=== PATIENT | male | born 1965 | race Caucasian/White ===

== ENCOUNTER 2020-08-21 20:10 | Observation (INO) | payer SELFPAY ==
[2020-08-21] VITALS (8 sets, daily range): BP systolic 131–171; BP diastolic 76–104; PULSE 52–67; RESP 16–19; TEMP 36.1–36.6; O2SAT 98–100; BMI 26.6; BMI 26.2; BMI 26.0
--- NOTE | 2020-08-21 20:13 | ED.RN ---
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
--- NOTE | 2020-08-21 20:28 | EKG12_ITS ---
Test Reason : CP Blood Pressure : / mmHG Vent. Rate : 058 BPM Atrial Rate : 058 BPM P-R Int : 154 ms QRS Dur : 122 ms QT Int : 400 ms P-R-T Axes : 046 -13 047 degrees QTc Int : 392 ms Sinus bradycardia Right bundle branch block Abnormal ECG Confirmed by JENNI GUERRERO, KATIE ([id number]), marketing editor SAW PAIZ ([id number]) on 08/28/2020 9:15:04 AM Referred By: LILIAN Confirmed By:SOCORRO ARTEAGA MD
--- NOTE | 2020-08-21 20:28 | RAD_ITS ---
STUDY: X-RAY CHEST REASON FOR EXAM: Male, 55 years old. chronic chest pain for several weeks, SOB TECHNIQUE: Single AP portable view of the chest. COMPARISON: None. FINDINGS: The lungs are clear and expanded. There is no demonstrated pleural abnormality. Normal size heart. Normal mediastinum and miguel. Normal visualized pulmonary arteries. Normal visualized aortic arch and descending thoracic aorta. Normal visualized thoracic spine. Normal visualized ribs, clavicles, and shoulders. There is no demonstrated abnormality of the visualized soft tissue structures of the upper abdomen. RAD/Chest 1 View (Portable) IMPRESSION: Normal x-ray examination of the chest. Electronically Signed: Ivette Hernandez MD at 21:51 EST Tel , Service support ,
--- NOTE | 2020-08-21 20:29 | ED.DCSUM_ITS ---
History of Present Illness Chief Complaint: Chest Pain Informant: Patient Onset: Month(s) Context: Sudden Onset Timing: Intermittent Quality: Pressure tightness Location: Central to left chest Current Severity: Mild Maximum Severity: Moderate Worsened by: Heavy exertion Relieved by: Rest Associated Symptoms: Shortness of breath Narrative: Patient is a 55-year-old male who states he is had chest discomfort that is intermittent and related to exertion for the past 1 to 2 months. He saw his primary care physician Dr. Esparza who did an EKG and felt it was nothing serious. He denies any infectious symptoms. He denies fever, chills night sw eats. Nu[place] weight gain or weight loss. Denies history of smoking or drinking. He denies history of hypertension, diabetes or hypercholesterolemia. He denies history of VTE. He denies leg pain, swelling discoloration. He denies epistaxis. He denies hematemesis. He denies black or maroon-colored stool. He denies blood in his stool. He denies history of peptic ulcers, hiatal hernia or reflux. Prior similar symptoms: No Recent Illness/Hospitalization: Yes - Months ago saw PCP - Past Medical History (1) No significant past medical history Status: Acute Past Medical History - Allergies and Home Meds Allergies/Adverse Reactions: Allergies No Known Allergies Allergy (Verified 08/21/20 20:13) Primary Care Physician: Jake Esparza DO [Primary Care Provider] - Prior records reviewed: No Past Medical History: None Surgical History: no surgical history Lives: Spouse/ Significant Other Smoking Status: Never smoker Alcohol: Rare - Sent changes answer from no alcohol to rare. Drugs: None Review of Systems General: Denies: Chills, Fever, Subjective, Sweats Eyes: Denies: Visual changes - bilaterally, Blurred Vision - bilaterally, D iplopia ENT: Denies: Bilateral ear pain, Rhinorrhea, Sore throat Cardiovascular: Reports: Chest pain. Denies: Palpitations, Heart racing Respiratory: Reports: Dyspnea, Dyspnea on exertion. Denies: Cough, Orthopnea Gastrointestinal: Denies: Abdominal pain, Nausea, Vomiting, Diarrhea, Melena, Hematochezia Genitourinary: Denies: Dysuria, Hematuria, Frequency Musculoskeletal: Denies: Arthralgias, Neck pain, Back pain, Swelling, Extremity Pain Skin: Denies: Rash, Wounds Neurological: Denies: Headache, Weakness, Numbness Endocrine: Denies: Polyuria, Polydipsia Allergy: Denies: Uticaria, Swelling of the mouth Physical Exam Vital Signs/Narrative: Vital Signs Temp Pulse Resp BP Pulse Ox 08/21/20 20:11 96.9 F L 66 16 171/102 H 98 Inital Vital Signs reviewed: Yes General: Well nourished, Well developed, No Acute Distress Head: Normocephalic, Atraumatic Eyes: Perrl, EOMI. Negative for: Pale conjunctiva, Scleral icterus ENT: Moist mucous membranes, No rhinorrhea Neck: Supple, Nontender, No lymphadenopathy, No JVD Cardiovascular: Regular rate, Regular rhythm, No murmurs, Normal S1, Normal S2 Respiratory: No distress, CTA bilaterally, Chest nontender Abdomen: Soft, Nontender, Nondistended, Normal bowel sounds Rectal: Deferred Back: Nontender, Normal Inspection Extremities: Nontender, No edema. Negative for: Calf Tenderness Skin: Normal color, No rash, No Trauma. Negative for: Cyanosis, Diaphoresis Neurological: Alert, Oriented x3, Cranial nerves II-XII grossly intact, Normal Strength, Normal Sensation, Normal Gait Psychological: Normal affect Diagnostic/Tx/Re-eval Chest X-Ray - ED: 1 View, Normal, Heart, Lungs, Mediastinum, Bony Structures, No Acute Disease, - - Tray was interpreted by me at 2145. 08/21/20 20:28 Chest 1 View (Portable) [RAD] Stat Laboratory Results 08/21/20 08/21/20 20:35 20:35 WBC 9.7 RBC 4.81 Hgb 13.9 Hct 42.6 MCV 88.6 MCH 28.9 MCHC 32.6 RDW Std Deviation 42.1 RDW Coeff of David 13.0 Plt Count 322 MPV 9.5 Immature Gran % (Auto) 0.300 Neut % (Auto) 55.3 Lymph % (Auto) 33.0 Coffee % (Auto) 10.3 H Eos % (Auto) 0.7 Baso % (Auto) 0.4 Absolute Neuts (auto) 5.4 Absolute Lymphs (auto) 3.20 Nucleated RBC % 0 Sodium 140 Potassium 3.9 Chloride 106 Carbon Dioxide 27.0 Anion Gap 7 BUN 17 Creatinine 0.99 Estim Creat Clear Calc 77.90 Est GFR (MDRD) Af Amer 100 Est GFR (MDRD) Non-Af 83 BUN/Creatinine Ratio 17.1 Glucose 96 Calcium 9.1 Troponin I < 0.015 CBC is unremarkable. Basic metabolic panel is unremarkable. First troponin is normal. - Medical Decision Making History of chest pressure brought on with exertion that started 1 to 2 months ago concern patient has coronary disease. Will obtain EKG to rule out acute ischemia. Appropriate blood work was obtained to rule out anemia, renal dysfunction and evidence of myocardial infarction. He will receive 4 baby aspirin and since he is complaining of chest discomfort described as pressure nitro series. Patient was reassessed at 2151. Patient has not received his nitroglycerin. He still complaining of discomfort. The hospitalist was paged for observation status PCU to evaluate for cardiac etiology causing his exertional chest pain ED Disposition - Plan for ED Patient: Disposition: Acute Care Hospital [facility] Diagnosis: Exertional chest pain Referrals: Jake Esparza DO [Primary Care Provider] -
[2020-08-21 20:53] LABS: Absolute Neutrophil Count 5.4 X10^3/uL (2.0-7.7); Basophil# 0.04 X10^3/uL; Basophil% 0.4 % (0-1); Eosinophil# 0.07 X10^3/uL; Eosinophils% 0.7 % (0-5); Hematocrit 42.6 % (40-54); Hemoglobin 13.9 g/dL (13.0-16.5); Mean Corp Hgb Conc 32.6 g/dL (32-36); Mean Corpuscular Hgb 28.9 pg (27.0-32.0); Mean Corpuscular Volume 88.6 fL (80-94); Mean Platelet Vol. 9.5 fl (6.2-12.0); Monocyte% 10.3 % (0-10); NRBC Flagged by Analyzer 0 % (0-5); Neutrophil # 5.36 X10^3/uL (2.7-7.7); Neutrophil % 55.3 % (47-70); Platelet Count 322 K/mm3 (150-450); RBC Distribution Width SD 42.1 fl (35.1-43.9); Red Blood Count 4.81 M/mm3 (4.6-6.2); White Blood Count 9.7 K/mm3 (4.4-11.0)
[2020-08-21 21:14] LABS: Anion Gap 7 (5-15); BUN 17 mg/dL (7-18); BUN/Creat Ratio 17.1 RATIO (10-20); Calcium,Total 9.1 mg/dL (8.5-10.1); Chloride 106 mmol/L (98-107); Creatinine, Serum 0.99 mg/dL (0.70-1.30); EST Glomerular Filtration Rate 83 mL/min (>60); Est Glom Filt Rate - Afr Amer 100 mL/min (>60); Glucose 96 mg/dL (74-106); Potassium 3.9 mmol/L (3.5-5.1); Sodium Level 140 mmol/L (136-145)
[2020-08-21] MEDS: Aspirin 81 MG TAB.CHEW 324 MG PO (21:54)
--- NOTE | 2020-08-21 22:10 | HP.PCM_ITS ---
Problem List (1) Elevated blood pressure reading Status: Acute (2) No significant past medical history Status: Acute (3) Exertional chest pain Status: Acute History of Present Illness Date of Admission: 08/21/20 Chief Complaint: Chest pain. The patient is a 55 year old M with no significant past medical history presented to the emergency room because of chest pain. Patient stated that symptoms started around 2 to 3 weeks ago with chest pain, underdistended, described as chest pressure, mild, constant, sometimes radiates to the left upper arm, associated with mild shortness of breath and over the last couple of days, he noticed that he has been getting more short of breath than the last 2 weeks. He mentioned that around 2 months ago, he went to see his PCP, had an EKG done that was unremarkable according to the patient and he mentioned that his blood pressure was elevated at that time. He denied fever or chills. He denied cough or sputum production. No family history of premature CAD. In the emergency department, patient was afebrile, heart rate stable, blood pressure was elevated, pulse ox was 98% on room air. Routine blood work was unremarkable. Chest x-ray showed no acute findings. EKG revealed normal sinus rhythm, right bundle branch block, no acute ischemic changes. Troponin was negative. He is being admitted for chest pain and suspected angina pectoris as well as elevated blood pressure. Past Medical History Allergies No Known Allergies Allergy (Verified 08/21/20 20:13) Home Medications: Ambulatory Orders Medication Instructions Recorded NK 08/21/20 Surgical History: appendectomy Psychiatric History: No pertinent psych hx Lives: Spouse/ Significant Other Smoking Status: Never smoker Alcohol: Rare - Sent changes answer from no alcohol to rare. Drugs: None - *Family History Maternal History Items: - - No family history of premature CAD. Paternal History Items: No pertinent history Review of Systems Constitutional: Denies: Anorexia, Chills, Fever, Weakness Eyes: Denies: Blurred vision, Double vision, Drainage, Redness HEENT: Denies: Difficulty Hearing, Ear Pain, Eye Pain, Nasal Congestion, Sore Th roat Cardiovascular: Reports: Chest Pain, Chest Pressure. Denies: Edema, Heaviness, Light Headedness, Orthopnea, Paroxysmal Noc. Dyspnea, Syncope Respiratory: Reports: Shortness of Breath, Shortness of breath upon exertion. Denies: Cough, Hemoptysis, Pleuritic Pain, Sputum production, Wheezing Gastrointestinal: Denies: Abdominal Pain, Constipation, Diarrhea, Nausea, Vomiting Genitourinary: Denies: Dysuria, Frequency, Hematuria Musculoskeletal: Denies: Arm Pain, Back Pain, Foot Pain Skin: Denies: Dryness, Rash Neurological: Denies: Balance problems, Double vision, Change in Speech, Slurred speech, Confusion, Headaches, Incoordination Psychiatric: Denies: Anxiety, Depression Endocrine: Denies: Change in Body Habitus, Polydipsia, Polyuria VTE Information - Inpt Only VTE Present on Admission: No VTE Mechan Device Prophylaxis: None VTE Pharm Prophylaxis ordered?: No Patient Problems: Active and Suspected Problems No significant past medical history (Acute) Exertional chest pain (Acute) - Physical Exam Vitals/I&O's: Vital Signs Temp Pulse Resp BP Pulse Ox 96.9 F L 62 16 170/95 H 100 08/21/20 20:11 08/21/20 21:55 08/21/20 21:55 08/21/20 21:55 08/21/20 21:55 Oxygen Delivery Method Room Air Weight: 170 lb Body Mass Index (BMI) 26.6 General: Alert, Oriented x3, Cooperative, No apparent distress HEENT: Atraumatic, PERRLA, EOMI, Normocephalic Oral: Moist Mucosa, No Gingival or Mucosal Lesions/ Ulcerations Neck: Supple, No JVD, Negative Carotid Bruits, Trachea Midline, Thyroid Normal Size and Texture Lungs: Clear to auscultation, Normal air movement, No rhonchi, No wheeze, No rales Cardiovascular: Regular rate, Regular Rhythm, Normal S1, Normal S2, PMI Normal Abdomen: Bowel Sounds Present, Soft, Non Tender, Non-Distended, No Hepato- splenomegaly Extremities: No clubbing, No cyanosis, No edema Skin: No rashes, No breakdown Lymphatic: No Cervical, Supraclavicular, or Inguinal Adenopathy Neurological: Cranial nerves II-XII grossly intact, Motor Exam 5/5 strength throughout Psych/Mental Status: Normal Affect, Appropriate, Alert and oriented to time, place, person, mood and affect Laboratory Results 08/21/20 20:35: WBC 9.7, RBC 4.81, Hgb 13.9, Hct 42.6, MCV 88.6, MCH 28.9, MCHC 32.6, RDW Std Deviation 42.1, RDW Coeff of David 13.0, Plt Count 322, MPV 9.5, Immature Gran % (Auto) 0.300, Neut % (Auto) 55.3, Lymph % (Auto) 33.0, [place] % (Auto) 10.3 H, Eos % (Auto) 0.7, Baso % (Auto) 0.4, Absolute Neuts (auto) 5.4, Absolute Lymphs (auto) 3.20, Nucleated RBC % 0 08/21/20 20:35: Sodium 140, Potassium 3.9, Chloride 106, Carbon Dioxide 27.0, Anion Gap 7, BUN 17, Creatinine 0.99, Estim Creat Clear Calc 77.90, Est GFR (MDRD) Af Amer 100, Est GFR (MDRD) Non-Af 83, BUN/Creatinine Ratio 17.1, Glucose 96, Calcium 9.1, Troponin I < 0.015 Clinical Impression(s) from Imaging Studies Chest X-Ray 08/21/20 20:28 IMPRESSION: Normal x-ray examination of the chest. Electronically Signed: Ivette Hernandez MD at 21:51 EST Tel , Service support , Current Medications Nitroglycerin (Nitroglycerin Sl (Ed/Img/Cath) 0.4 Mg Tablet) 0.4 mg SUBLINGUAL Q5M PRN PRN Reason: Chest pain Assessment/Plan All Active Problems Elevated blood pressure reading (Acute) No significant past medical history (Acute) Exertional chest pain (Acute) This is a 55 years old male patient presented to the emergency room because of chest pain/pressure associated with shortness of breath and is being admitted for evaluation and treatment. #1 chest pain/pressure/suspected angina pectoris: EKG revealed no acute ischemic changes, RBBB. Chest x-ray without acute findings. Blood pressure elevated, other vital signs are stable. Troponin was negative. Patient denied family history of premature CAD. Plan: Admit to PCU for observation, cardiac monitoring, serial cardiac enzymes, repeat EKG tomorrow morning, start baby aspirin, lipid profile, nuclear stress test tomorrow morning if cardiac enzymes are negative, sublingual nitro as needed. #2 elevated blood pressure: Without history of hypertension. Patient mentioned that he went to his PCP around 2 months ago, found to have high blood pressure and EKG which was unremarkable. In the ED, blood pressure was up to 170 systolic. Plan: Start lisinopril/HCTZ, IV hydralazine as needed. #3 DVT prophylaxis: Low risk patient, no prophylaxis indicated. This note was generated with [employer] dictation software. It may contain incorrect words, spelling, and punctuation that were not noted in checking the note before signing. OBSV E&M: 61539 Initial observation care L3
[2020-08-21] MEDS: Nitroglycerin SL (ED/IMG/CATH) 0.4 MG TABLET SUBLINGUAL ×2 (22:11→22:18)
[2020-08-21 23:29] LABS: Cholesterol 250 mg/dL (200); High Density Lipoprotein 53 mg/dL; Triglycerides 118 mg/dL; Very Low Density Lipoprotein 24 mg/dL (5-40)
[2020-08-22] VITALS (7 sets, daily range): BP systolic 99–122; BP diastolic 62–74; PULSE 56–67; RESP 16; TEMP 36.5–36.7; O2SAT 99–100
[2020-08-22] MEDS: Lisinopril 20 MG Tablet PO (05:22)
[2020-08-22] MEDS: Aspirin E.C. 81 MG Tablet PO (05:22)
--- NOTE | 2020-08-22 05:55 | EKG12_ITS ---
Test Reason : CP ADMIT Blood Pressure : / mmHG Vent. Rate : 064 BPM Atrial Rate : 064 BPM P-R Int : 158 ms QRS Dur : 124 ms QT Int : 418 ms P-R-T Axes : 041 -25 045 degrees QTc Int : 431 ms Normal sinus rhythm Right bundle branch block Abnormal ECG No previous ECGs available Confirmed by JENNI GUERRERO, KATIE ([id number]), editor & co founder SAW PAIZ ([id number]) on 08/24/2020 11:58:15 AM Referred By: DR MCPHERSON Confirmed By:SOCORRO ARTEAGA MD
[2020-08-22] MEDS: hydroCHLOROthiazide 12.5mg 12.5 MG PO (10:12)
--- NOTE | 2020-08-22 13:29 | STRESSREP ---
Stress Test Report Date: 08/22/2020 Procedure: Exercise tolerance test/imaging study Indications: Chest pain Consent: Per the patient Procedure: The patient exercised on a Favian protocol for 9 minutes achieving a peak heart rate of 146 bpm (89% predicted maximal heart rate) with a peak blood pressure 162/68 mmHg and a peak MET capacity of 10.1 METs. The baseline ECG demonstrated normal sinus rhythm. The peak exercise ECG demonstrated sinus tachycardia with no significant ST-T changes. EKG during recovery revealed no significant ischemic changes [There were no cardiac dysrhythmias pretest, during exercise, or recovery]. The functional capacity was considered normal for age. There was [no complaint of chest discomfort during exercise or recovery]. The examination was discontinued secondary to achieving target heart rate. Impression: 1. Technically adequate (percent predicted maximal heart rate greater than 85%) exercise tolerance test 2. Stress test is negative for exercise-induced EKG changes of ischemia 3. The test test is negative for exercise-induced chest pain 4. Functional capacity is normal for age 5. Nuclear images pending Myocardial perfusion imaging study: Technique: The patient was injected with [] mCi of technetium 99m Cardiolite and subsequently rest SPECT Cardiolite nuclear imaging was obtained in the horizontal long, vertical long, and short axis views. The patient exercised on a Favian protocol. Please see above for details. The patient was injected with [] mCi of technetium 99m Cardiolite and subsequently stress SPECT Cardiolite nuclear imaging was obtained in the horizontal long, vertical long, and short axis views. A gated Cardiolite study at peak stress was obtained. Interpretation: Rest and stress SPECT Cardiolite nuclear imaging status post realignment, normalization, and attenuation correction, demonstrates normal myocardial radioisotope uptake. The gated Cardiolite study demonstrates no significant regional wall motion abnormalities. The reported LVEF is 70%. Impression: 1. There is no evidence of significant ischemia or infarction. 2. The gated Cardiolite study reports an LVEF of 70%. This note was generated with [employer] software. It may contain incorrect words, spelling, and punctuation that were not noted in checking the note before signing.
--- NOTE | 2020-08-22 14:54 | DCINST_ITS ---
- Discharge Diagnoses Current Active Problems: Current Active and Chronic Problems Elevated blood pressure reading (Acute) No significant past medical history (Acute) Exertional chest pain (Acute) You will use the following diet at home:: No restrictions Discharge Activity: Return to Normal Activity Allergies/Adverse Reactions: Allergies No Known Allergies Allergy (Verified 08/21/20 20:13) Medications to take at Discharge NK 08/21/20 Primary Care Physician: Jake Esparza DO [Primary Care Provider] - Within 2 Weeks Test Results: Test results from this visit will be discussed in further detail at your follow- up appointment, if applicable. Proposed Discharge Date: 08/22/20
--- NOTE | 2020-08-22 14:55 | DS.PCM_ITS ---
Discharge Date and Diagnosis - Problem List Patient Problems: Active and Suspected Problems Elevated blood pressure reading (Acute) No significant past medical history (Acute) Exertional chest pain (Acute) Date of Admission: 08/21/20 Date of Discharge: 08/22/20 - Primary Discharge Diagnosis Acute Problems: Active Problems Elevated blood pressure reading (Acute) No significant past medical history (Acute) Exertional chest pain (Acute) Hospital Course and Treatment Imaging Results: Clinical Impression(s) from Imaging Studies Chest X-Ray 08/21/20 20:28 IMPRESSION: Normal x-ray examination of the chest. Electronically Signed: Ivette Hernandez MD at 21:51 EST Tel , Service support , Procedures: Stress test Summary of Care Provided: The patient is a 55 year old M presents with a several week history of chest pain. Chest pain was left-sided. Exam was unremarkable, EKG was unremarkable with exception of an incomplete right bundle branch block. Patient was brought in had series troponins as well as a stress test of which all which were negative. Patient had no evidence of any kind of zoster that would be masquerading as his chest pain. No additional work-up is necessary during during this hospitalization. Patient did have some elevated blood pressure when he initially presented but then it subsequently did improve as he was started on lisinopril and HCTZ.. Patient will be discharged with lisinopril 20 mg daily. Patient will be discharged home in stable condition. [] Patient Problems: Active and Suspected Problems Elevated blood pressure reading (Acute) No significant past medical history (Acute) Exertional chest pain (Acute) - Physical Exam Vitals/I&O's: Vital Signs Temp Pulse Resp BP Pulse Ox 36.5 C L 56 L 16 99/62 100 08/22/20 12:44 08/22/20 12:44 08/22/20 12:44 08/22/20 12:44 08/22/20 12:44 Oxygen Delivery Method Room Air Weight: 76.1 kg Body Mass Index (BMI) 26.2 Intake and Output for Last 24 Hours 08/20/20 08/21/20 08/22/20 23:59 23:59 23:59 Intake Total 540 / 540 Balance 540 / 540 General: Alert, Cooperative, No apparent distress HEENT: Atraumatic, Normocephalic Oral: Moist Mucosa, No Gingival or Mucosal Lesions/ Ulcerations Neck: No Nodes, Thyroid Normal Size and Texture Lungs: Clear to auscultation, Normal air movement, No rhonchi, No wheeze, No rales Cardiovascular: Regular rate, Regular Rhythm, Normal S1, Normal S2 Abdomen: Bowel Sounds Present, Soft, Non Tender, Non-Distended Laboratory Results 08/21/20 20:35: WBC 9.7, RBC 4.81, Hgb 13.9, Hct 42.6, MCV 88.6, MCH 28.9, MCHC 32.6, RDW Std Deviation 42.1, RDW Coeff of David 13.0, Plt Count 322, MPV 9.5, Immature Gran % (Auto) 0.300, Neut % (Auto) 55.3, Lymph % (Auto) 33.0, [place] % (Auto) 10.3 H, Eos % (Auto) 0.7, Baso % (Auto) 0.4, Absolute Neuts (auto) 5.4, Absolute Lymphs (auto) 3.20, Nucleated RBC % 0 08/21/20 20:35: Sodium 140, Potassium 3.9, Chloride 106, Carbon Dioxide 27.0, Anion Gap 7, BUN 17, Creatinine 0.99, Estim Creat Clear Calc 77.90, Est GFR (MDRD) Af Amer 100, Est GFR (MDRD) Non-Af 83, BUN/Creatinine Ratio 17.1, Glucose 96, Calcium 9.1, Troponin I < 0.015 08/21/20 20:35: Triglycerides 118, Cholesterol 250 H, LDL Cholesterol 173 H, VLDL Cholesterol 24, HDL Cholesterol 53 08/22/20 00:15: Troponin I < 0.015 08/22/20 02:18: Troponin I < 0.015 Current Medications Acetaminophen (Acetaminophen 325 Mg Tablet) 650 mg PO Q6H PRN PRN PRN Reason: Pain Score 1-10/Temp > 100.7 F Aspirin (Aspirin E.C. 81 Mg Tablet) 81 mg PO DAILY@0800 SHIRA Last Admin: 08/22/20 05:22 Dose: 81 mg Documented by: Hydralazine HCl (Hydralazine 20 Mg/Ml Vial) 10 mg IV Q8H PRN PRN PRN Reason: for SBP>160 Hydrochlorothiazide (Hydrochlorothiazide 12.5mg) 12.5 mg PO DAILY [facility] Last Admin: 08/22/20 10:12 Dose: 12.5 mg Documented by: Lisinopril (Lisinopril 20 Mg Tablet) 20 mg PO DAILY [facility] Last Admin: 08/22/20 05:22 Dose: 20 mg Documented by: Nitroglycerin (Nitroglycerin (Inpatient Use) 0.4 Mg Tab.Subl) 0.4 mg SUBLINGUAL Q5M PRN PRN Reason: CHEST PAIN Senna/Docusate Sodium (Senna/Docusate Sodium 1 Tablet) 2 tablet PO BID PRN PRN PRN Reason: Constipation Sodium Chloride (0.9% Saline Lock 10 Ml Syringe) 10 - 40 ml IV UD PRN PRN Reason: SALINE FLUSH Zolpidem Tartrate (Zolpidem Tartrate 5 Mg Tablet) 5 mg PO QHS PRN PRN PRN Reason: INSOMNIA Discharge Diet: No Restrictions Discharge Activity: Return to Normal Activity Home Medications: Medications to take at Discharge 08/21/20 Primary Care Physician: Jake Esparza DO [Primary Care Provider] - Within 2 Weeks Disposition: Home Minutes spent on discharge:: 28 Patient Condition:: Fair Medical Necessity - Tobacco Use Smoking Status: Never smoker Meaningful Use Info Meaningful Use Diagnoses (Choose all that apply): None applicable OBSV E&M: 51839 Observation care discharge
== END 2020-08-22 14:55 | disposition home or self-care (01) ==
LOC: ED 21:52 → PCU 22:09
PROVIDERS: Admitting Provider Hospitalist; Emergency Provider Emergency Medicine; PCP Family Medicine
DX: R07.89 Other chest pain (principal); R06.02 Shortness of breath; R03.0 Elevated blood-pressure reading, without diagnosis of hypertension; I45.10 Unspecified right bundle-branch block
CPT/HCPCS: 36415; 71045; 78452; 80048; 80061; 84484; 85025; 93005; 93017; 99218; 99285; A9500; A4216; G0378